=== PATIENT | male | born 1980 | race Caucasian/White ===

== ENCOUNTER 2017-10-26 19:09 | Emergency (ER) | payer OTHER ==
[~2017-10-26] VITALS: Ht 167.6 cm; Wt 121.8 kg
[~2017-10-26 19:09] MED LIST: BACTRIM,SEPT1 TABLET PO; ULTRAM50 MG PO; VICODIN 5-3001 EACH PO
[2017-10-26] MEDS ORDERED: FLEXERIL10 MG PO (19:34)
[2017-10-26 20:37] VITALS: BP 119/92
== END 2017-10-26 20:38 | disposition home or self-care (01) ==
LOC: EME 19:09
DX: S06.0X0A Concussion without loss of consciousness, initial encounter (principal); S16.1XXA Strain of muscle, fascia and tendon at neck level, initial encounter; V49.9XXA Car occupant (driver) (passenger) injured in unspecified traffic accident, initial encounter; Y92.410 Unspecified street and highway as the place of occurrence of the external cause; Z87.820 Personal history of traumatic brain injury
CPT/HCPCS: 99281; 99283